=== PATIENT | male | born 1945 | race Caucasian/White ===

== ENCOUNTER 2019-01-17 09:44 | Emergency (ER) | payer MEDICAID, MEDICARE ==
--- NOTE | 2019-01-17 10:37 | ED ---
Psychiatric Complaint - HPI Summary HPI Summary: Pt is a 73 y/o M presenting to the ED with multiple symptoms present. 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 He also notes he just came back to [place] last night after living in [place] for an extended period of time. He thinks he is depressed, and when he last lived in [place] he was in the [employer] and was diagnosed with paranoid schizophrenia. He also notes hes worried about how he might get a refund for the [facility] [employer] hes staying at, as his sister paid for it and he thinks he might be admitted. He states he sometimes feels dizzy, and reports hx of DM and heart murmur. Pt denies any fever, chills, erythema of eyes, sore throat, CP, SOB, cough, abdominal pain, N/V, dysuria, hematuria, myalgia, edema , or rash. - History Of Current Complaint Chief Complaint: EDMentalHealth Time Seen by Provider: 01/17/19 10:01 Hx Obtained From: Patient Onset/Duration: Gradual Onset, Still Present Timing: Days Severity Initially: Moderate Severity Currently: Moderate Character: Anxious Aggravating Factor(s): Nothing Alleviating Factor(s): Nothing Associated Signs And Symptoms: Positive: Negative Related History: Positive For: Prior Psychiatric Issues Has Suicidal: Denies: Thoughts - Allergies/Home Medications Allergies/Adverse Reactions: Allergies Allergy/AdvReac Type Severity Reaction Status Date / Time cortisone Allergy Swelling Verified 01/17/19 10:10 Home Medications: Home Medications Atorvastatin* [Lipitor*] 20 mg PO DAILY 01/17/19 [History Confirmed 01/17/19] Carvedilol [Coreg] 25 mg PO BID 01/17/19 [History Confirmed 01/17/19] Lisinopril 20 mg PO DAILY 01/17/19 [History Confirmed 01/17/19] Metformin HCl 1,000 mg PO BID 01/17/19 [History Confirmed 01/17/19] PMH/Surg Hx/FS Hx/Imm Hx Previously Healthy: Yes Endocrine/Hematology History: Reports: Hx Diabetes Cardiovascular History: Reports: Other Cardiovascular Problems/Disorders - heart murmur, prior valve replacement Psychiatric History: Reports: Hx Schizophrenia Infectious Disease History: No Infectious Disease History: Denies: Traveled Outside the US in Last 30 Days - Family History Known Family History: Negative: Cardiac Disease - Social History Alcohol Use: None Hx Substance Use: No Substance Use Type: Reports: None Hx Tobacco Use: No Smoking Status (MU): Never Smoked Tobacco Review of Systems Negative: Fever, Chills Negative: Erythema Negative: Sore Throat Negative: Chest Pain Negative: Shortness Of Breath, Cough Negative: Abdominal Pain, Vomiting, Nausea Negative: dysuria, hematuria Negative: Myalgia, Edema Negative: Rash Neurological: Other - dizziness Positive: Other - positive: paranoid. negative: current SI All Other Systems Reviewed And Are Negative: Yes Physical Exam - Summary Physical Exam Summary: Constitutional: Well-developed, Well-nourished, Alert. (-) Distressed Skin: Warm, Dry HENT: Normocephalic; Atraumatic Eyes: Conjunctiva normal Neck: Musculoskeletal ROM normal neck. (-) JVD, (-) Stridor, (-) Tracheal deviation Cardio: Rhythm regular, rate normal, Heart sounds normal; Intact distal pulses; The pedal pulses are 2+ and symmetric. Radial pulses are 2+ and symmetric. (-) Murmur Pulmonary/Chest wall: Effort normal. (-) Respiratory distress, (-) Wheezes, (-) Rales Abd: Soft, (-) tenderness, (-) Distension, (-) Guarding, (-) Rebound Musculoskeletal: (-) Edema Lymph: (-) Cervical adenopathy Neuro: Alert, Oriented x3 Psych: pt has pressured, rapid speech. He is disorganized and paranoid Triage Information Reviewed: Yes Vital Signs On Initial Exam: Initial Vitals Temp Pulse Resp BP Pulse Ox 97.5 F 71 16 128/76 98 01/17/19 09:47 01/17/19 09:47 01/17/19 09:47 01/17/19 09:47 01/17/19 09:47 Vital Signs Reviewed: Yes Diagnostics - Vital Signs Vital Signs Temp Pulse Resp BP Pulse Ox 01/17/19 09:47 97.5 F 71 16 128/76 98 - Laboratory Result Diagrams: 01/17/19 10:37 01/17/19 10:37 Lab Statement: Any lab studies that have been ordered have been reviewed, and results considered in the medical decision making process. Course/Dx - Course Course Of Treatment: Pt is a 73 y/o M presenting to the ED with multiple symptoms present. 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 Pt denies any fever, chills, erythema of eyes, sore throat, CP, SOB, cough, abdominal pain, N/V, dysuria, hematuria, myalgia, edema, or rash. On exam, the pt has rapid, pressured speech. He is disorganized and paranoid. Pts lab results show RBC of 3.93, Hgb of 13.1, Hct of 38, MCV of 96, MCH of 33, plt count of 130, and Globulin of 4.1. Pt will be d/c'ed with dx of adjustment to stress as per Dr. White. He is stable and agreeable with this plan. - Differential Dx/Clinical Impression Provider Diagnosis: Stress and adjustment reaction Discharge ED - Sign-Out/Discharge Documenting (check all that apply): Patient Departure Patient Received Moderate/Deep Sedation with Procedure: No - Discharge Plan Condition: Stable Disposition: HOME [facility]errals: [facility] [Outside] - Attestation Statements Document Initiated by Scribe: Yes Documenting Scribe: Rocio Hinds Provider For Whom Moisés is Documenting (Include Credential): Demarcus Leone MD. Scribe Attestation: Rocio Pace, scribed for Demarcus Leone MD. on 01/17/19 at 1530. Status of Scribe Document: Ready
[2019-01-17 10:51] LABS: ABS Lymphocytes 1.3 10^3/ul (1.0-4.8); ABS Monocytes 0.7 10^3/ul (0-0.8); Eosinophil % 0.4 %; Hematocrit 38 % (42-52); Hemoglobin 13.1 g/dL (14.0-18.0); Lymphocyte % 25.7 %; Mean Corpuscular HGB Conc 35 g/dL (31-36); Mean Corpuscular Hemoglobin 33 pg (27-31); Mean Corpuscular Volume 96 fL (80-94); Mean Platelet Volume 9.6 fL (7.4-10.4); Platelet Count 130 10^3/uL (150-450); Red Blood Count 3.93 10^6 /uL (4.18-5.48); Red Cell Distribution Width 13 % (10-15); White Blood Count 4.9 10^3/uL (3.5-10.8)
[2019-01-17 11:12] LABS: Albumin 4.1 g/dL (3.2-5.2); Anion Gap 7 mmol/L (2-11); CO2 Carbon Dioxide 24 mmol/L (22-32); Calcium 9.6 mg/dL (8.6-10.3); Chloride 106 mmol/L (101-111); Potassium 4.3 mmol/L (3.5-5.0); Sodium 137 mmol/L (135-145)
[2019-01-17 11:18] LABS: ALT 23 U/L (7-52); AST 29 U/L (13-39); Alkaline Phosphatase 52 U/L (34-104); Blood Urea Nitrogen 16 mg/dL (6-24); Globulin 4.1 g/dL (2-4); Glucose 113 mg/dL (70-100); Total Protein 8.2 g/dL (6.4-8.9)
[2019-01-17 12:06] LABS: Acetaminophen < 15 mcg/mL; Alcohol < 10 mg/dL (<10); Salicylate < 2.50 mg/dL (<30)
[2019-01-17 12:19] LABS: TSH (Thyroid Stimulating Horm) 1.91 mcIU/mL (0.34-5.60)
[2019-01-17 15:56] VITALS: BP 128/73
== END 2019-01-17 16:18 | disposition home or self-care (01) ==
LOC: ED 09:44
DX: F43.20 Adjustment disorder, unspecified (principal); E11.9 Type 2 diabetes mellitus without complications; F20.9 Schizophrenia, unspecified; Z79.84 Long term (current) use of oral hypoglycemic drugs; Z79.899 Other long term (current) drug therapy; Z88.8 Allergy status to other drugs, medicaments and biological substances
CPT/HCPCS: 36415; 80053; 80320; 80329; 84443; 85025; 99284; G0480

== ENCOUNTER 2019-01-18 13:27 | Emergency (ER) | payer MEDICARE ==
--- NOTE | 2019-01-18 13:55 | ED ---
Psychiatric Complaint - HPI Summary HPI Summary: This patient is a 73 year old M presenting to [facility] with a chief complaint of SI since 1000. Patient states that he moved here from [facility] and has been staying at [facility]. Patient states that he thinks he only has a day left to live there and fears he will become homeless. Patient has recently been seen in [facility] for his diabetes and clames that he is running out of his medication. The patient rates the pain 0/10 in severity. Symptoms aggravated by possible homelessness. Symptoms alleviated by nothing. Patient reports SI. Patient denies HI. Patient has PMHx of DM. Patient denies substance abuse, EtOH use and tobacco use. Allergies Allergy/AdvReac Type Severity Reaction Status Date / Time cortisone Allergy Swelling Verified 01/17/19 10:10 Home Medications Medication Instructions Recorded Confirmed Type Atorvastatin* [Lipitor 20 MG*] 20 mg PO DAILY 14 Days #14 tab 01/18/19 Rx Carvedilol [Coreg] 25 mg PO BID 14 Days #28 tablet 01/18/19 Rx Lisinopril 20 mg PO DAILY 14 Days #14 tablet 01/18/19 Rx Metformin HCl 1,000 mg PO BID 14 Days #28 tablet 01/18/19 Rx - History Of Current Complaint Chief Complaint: EDPsychosocial Time Seen by Provider: 01/18/19 13:43 Hx Obtained From: Patient Onset/Duration: Gradual Onset Timing: Constant Character: Fearful Aggravating Factor(s): Other - possible homelessness Alleviating Factor(s): Nothing Has Suicidal: Reports: Thoughts. Denies: With A Plan, Has Prior Attempt(s) Has Homicidal: Denies: Thoughts, With A Plan, Demonstrates Gesture, Has Prior Attempt(s) - Allergies/Home Medications Allergies/Adverse Reactions: Allergies Allergy/AdvReac Type Severity Reaction Status Date / Time cortisone Allergy Swelling Verified 01/17/19 10:10 PMH/Surg Hx/FS Hx/Imm Hx Endocrine/Hematology History: Reports: Hx Diabetes Cardiovascular History: Reports: Other Cardiovascular Problems/Disorders - heart murmur, prior valve replacement Psychiatric History: Reports: Hx Schizophrenia Denies: Hx Eating Disorder Infectious Disease History: No Infectious Disease History: Denies: Traveled Outside the US in Last 30 Days - Family History Known Family History: Negative: Cardiac Disease - Social History Alcohol Use: None Hx Substance Use: No Substance Use Type: Reports: None Hx Tobacco Use: No Smoking Status (MU): Never Smoked Tobacco Review of Systems Negative: Fever Positive: Anxious All Other Systems Reviewed And Are Negative: Yes Physical Exam - Summary Physical Exam Summary: Constitutional: Well-developed, Well-nourished, Alert. (-) Distressed Skin: Warm, Dry HENT: Normocephalic; Atraumatic Eyes: Conjunctiva normal Neck: Musculoskeletal ROM normal neck. (-) JVD, (-) Stridor, (-) Tracheal deviation Cardio: Rhythm regular, rate normal, Heart sounds normal; Intact distal pulses; The pedal pulses are 2+ and symmetric. Radial pulses are 2+ and symmetric. (-) Murmur Pulmonary/Chest wall: Effort normal. (-) Respiratory distress, (-) Wheezes, (-) Rales Abd: Soft, (-) tenderness, (-) Distension, (-) Guarding, (-) Rebound Musculoskeletal: (-) Edema Lymph: (-) Cervical adenopathy Neuro: Alert, Oriented x3 Psych: Mood and affect Normal Triage Information Reviewed: Yes Vital Signs On Initial Exam: Initial Vitals Temp Pulse Resp BP Pulse Ox 97.8 F 70 17 114/76 99 01/18/19 13:34 01/18/19 13:34 01/18/19 13:34 01/18/19 13:34 01/18/19 13:34 Vital Signs Reviewed: Yes Diagnostics - Vital Signs Vital Signs Temp Pulse Resp BP Pulse Ox 01/18/19 13:34 97.8 F 70 17 114/76 99 - Laboratory Lab Statement: Any lab studies that have been ordered have been reviewed, and results considered in the medical decision making process. Re-Evaluation - Re-Evaluation First Eval Re-Evaluation Time: 14:35 Change: Improved Comment: [facility] Psychiatric tube turner saw patient and states that he should have his medications refilled and contact [facility]. Course/Dx - Course Course Of Treatment: Patient is here for his medications. Patient was seen here yesterday and given resources by the mental health team. Patient followed up on some of those resources and has an appointment with [facility] tomorrow. Patient had no red flag symptoms of mental health. He was seen by our psychiatry team again and given resources. Patient had 2 weeks of his medications prescribed by myself until he can see a PCP. - Differential Dx/Clinical Impression Provider Diagnosis: Medication refill, Agitation - Physician Notifications Discussed Care Of Patient With: Joselito White - psychiatrist Time Discussed With Above Provider: 14:45 Instructed by Provider To: Other - Dr. White recommends patient be discharged with his perscriptions refilled and to follow up with [facility] and [facility]. Discharge ED - Sign-Out/Discharge Documenting (check all that apply): Patient Departure - discharged Patient Received Moderate/Deep Sedation with Procedure: No - Discharge Plan Condition: Stable Disposition: HOME Prescriptions: Atorvastatin* [Lipitor 20 MG*] 20 mg PO DAILY 14 Days #14 tab Carvedilol [Coreg] 25 mg PO BID 14 Days #28 tablet Lisinopril 20 mg PO DAILY 14 Days #14 tablet Metformin HCl 1,000 mg PO BID 14 Days #28 tablet Patient Education Materials: Stress (ED), Medicine Refill (ED) Referrals: [facility] [Outside] - 3 Days Additional Instructions: PLEASE RETURN TO EMERGENCY DEPARTMENT FOR ANY NEW OR WORSENING SYMPTOMS ESPECIALLY ANY THOUGHTS OF SUICIDE OR THOUGHTS OF HURTING ANYONE. FOLLOW UP WITH [facility] IN 1-3 DAYS. - Billing Disposition and Condition Condition: STABLE Disposition: Home - Attestation Statements Document Initiated by Moisés: Yes Documenting Trevibe: Erika Amaro Provider For Whom Moisés is Documenting (Include Credential): Dr. Livan Aguero MD Scribe Attestation: Erika Pace scribed for Dr. Livan Aguero MD on 01/18/19 at 2000. Scribe Documentation Reviewed: Yes Provider Attestation: The documentation as recorded by the Erika quiroz accurately reflects the service I personally performed and the decisions made by me, Dr. Livan Aguero MD Status of Scribe Document: Viewed
[2019-01-18 14:48] VITALS: BP 120/69
== END 2019-01-18 14:57 | disposition home or self-care (01) ==
LOC: ED 13:27
DX: R45.1 Restlessness and agitation (principal); Z79.899 Other long term (current) drug therapy; E11.9 Type 2 diabetes mellitus without complications; Z95.2 Presence of prosthetic heart valve; F20.9 Schizophrenia, unspecified; Z79.84 Long term (current) use of oral hypoglycemic drugs; Z88.8 Allergy status to other drugs, medicaments and biological substances
CPT/HCPCS: 99282

== ENCOUNTER 2019-01-19 17:24 | Inpatient (IN) | payer MEDICARE ==
--- NOTE | 2019-01-19 18:04 | ED ---
Psychiatric Complaint - HPI Summary HPI Summary: This patient is a 73 year old M presenting to ED with a chief complaint of SI since 01/16/19. Patient has been seen here three times in the past three days for MHE. He reports a plan to jump off the bridge at [place]. Patient reports he needs medication that he didnt have in [place]. He would like to be admitted to the psych [facility]. The patient rates the pain 0/10 in severity. Symptoms aggravated by nothing. Symptoms alleviated by nothing. Patient denies fever. - History Of Current Complaint Chief Complaint: EDMentalHealth Time Seen by Provider: 01/19/19 17:52 Hx Obtained From: Patient Onset/Duration: Lasting Days - Since 01/16/19, Still Present Timing: Constant Severity Initially: Moderate Severity Currently: Moderate Character: Depressed Aggravating Factor(s): Nothing Alleviating Factor(s): Nothing Associated Signs And Symptoms: Positive: Negative - Fever Related History: Positive For: Prior Psychiatric Issues Has Suicidal: Reports: Thoughts, With A Plan Has Homicidal: Denies: Thoughts, With A Plan - Allergies/Home Medications Allergies/Adverse Reactions: Allergies Allergy/AdvReac Type Severity Reaction Status Date / Time cortisone Allergy Swelling Verified 01/17/19 10:10 PMH/Surg Hx/FS Hx/Imm Hx Endocrine/Hematology History: Reports: Hx Diabetes Cardiovascular History: Reports: Other Cardiovascular Problems/Disorders - heart murmur, prior valve replacement Psychiatric History: Reports: Hx Schizophrenia Denies: Hx Eating Disorder - Surgical History Surgery Procedure, Year, and Place: Open heart surgery. Aortic valve replacement. Right hip replacement Infectious Disease History: No Infectious Disease History: Denies: Traveled Outside the in Last 30 Days - Family History Known Family History: Negative: Cardiac Disease - Social History Alcohol Use: None Hx Substance Use: No Substance Use Type: Reports: None Hx Tobacco Use: No Smoking Status (MU): Never Smoked Tobacco Review of Systems Negative: Fever Psychological: Other - SI Positive: Depressed All Other Systems Reviewed And Are Negative: Yes Physical Exam - Summary Physical Exam Summary: VITAL SIGNS: Reviewed. GENERAL: Patient is a well-developed and nourished M who is lying comfortable in the stretcher. Patient is not in any acute respiratory distress. HEAD AND FACE: No signs of trauma. No ecchymosis, hematomas or skull depressions. No sinus tenderness. EYES: PERRLA, EOMI x 2, No injected conjunctiva, no nystagmus. EARS: Hearing grossly intact. Ear canals and tympanic membranes are within normal limits. MOUTH: Oropharynx within normal limits. NECK: Supple, trachea is midline, no adenopathy, no JVD, no carotid bruit, no c- spine tenderness, neck with full ROM. CHEST: Symmetric, no tenderness at palpation. LUNGS: Clear to auscultation bilaterally. No wheezing or crackles. CVS: Regular rate and rhythm, S1 and S2 present, no murmurs or gallops appreciated. ABDOMEN: Soft, non-tender. No signs of distention. No rebound, no guarding, and no masses palpated. Bowel sounds are normal. EXTREMITIES: FROM in all major joints, no edema, no cyanosis or clubbing. NEURO: Alert and oriented x 3. No acute neurological deficits. Speech is normal and follows commands. SKIN: Dry and warm. PSYCH: Depressed, quiet, and admits to suicidal thoughts and plan. No homicidal thoughts or plan. No signs of psychosis or pressure speech. No tangential speech. Triage Information Reviewed: Yes Vital Signs On Initial Exam: Initial Vitals Temp Pulse Resp BP Pulse Ox 98.4 F 72 14 130/77 98 01/19/19 17:33 01/19/19 17:33 01/19/19 17:33 01/19/19 17:33 01/19/19 17:33 Vital Signs Reviewed: Yes Diagnostics - Vital Signs Vital Signs Temp Pulse Resp BP Pulse Ox 01/19/19 17:33 98.4 F 72 14 130/77 98 - Laboratory Result Diagrams: 01/19/19 18:32 01/19/19 18:31 Lab Statement: Any lab studies that have been ordered have been reviewed, and results considered in the medical decision making process. Course/Dx - Course Course Of Treatment: Blood work w/o a significant abnormality. He is medically cleared. He is awaiting a MHE. Patient is hemodynamically stable and A+O x 3. Patient was signed out to Dr. Marsh at shift change at 1900 on 01/19/19 pending MHE. - Differential Dx/Clinical Impression Provider Diagnosis: Psychosis Discharge ED - Sign-Out/Discharge Documenting (check all that apply): Sign-Out Patient Signing out patient TO: Lucie Marsh - Discharge Plan Condition: Stable Disposition: PSYCHIATRIC FACILITY-OTHER - Billing Disposition and Condition Condition: STABLE Disposition: Psychiatric Facility Other - Attestation Statements Document Initiated by Scribe: Yes Documenting Scribe: Nilson Pulido Provider For Whom Moisés is Documenting (Include Credential): Jeromy Seymour MD Scribe Attestation: I, Nilson Pulido, scribed for Jeromy Seymour MD on 01/20/19 at 1853. Scribe Documentation Reviewed: Yes Provider Attestation: The documentation as recorded by the scribeNilson accurately reflects the service I personally performed and the decisions made by me, Jeromy Seymour MD Status of Scribe Document: Viewed
[2019-01-19 18:44] LABS: ABS Lymphocytes 2.2 10^3/ul (1.0-4.8); ABS Monocytes 0.6 10^3/ul (0-0.8); ABS Neutrophils 3.6 10^3/ul (1.5-7.7); Eosinophil % 0.4 %; Hematocrit 37 % (42-52); Hemoglobin 12.9 g/dL (14.0-18.0); Mean Corpuscular HGB Conc 35 g/dL (31-36); Mean Corpuscular Hemoglobin 33 pg (27-31); Mean Corpuscular Volume 96 fL (80-94); Mean Platelet Volume 9.6 fL (7.4-10.4); Nucleated Red Blood Cells % 0.1; Platelet Count 131 10^3/uL (150-450); Red Blood Count 3.87 10^6 /uL (4.18-5.48); Red Cell Distribution Width 13 % (10-15); White Blood Count 6.4 10^3/uL (3.5-10.8)
[2019-01-19 18:56] LABS: Urine Appearance Clear; Urine Bacteria Absent (Absent); Urine Bilirubin Negative (Negative); Urine Blood Negative (Negative); Urine Color Amber; Urine Glucose Negative (Negative); Urine Ketones Trace (Negative); Urine Nitrite Negative (Negative); Urine Protein 1+(30 mg/dL) (Negative); Urine Red Blood Cell Absent (Absent); Urine Urobilinogen Negative (Negative); Urine White Blood Cell Absent (Absent)
[2019-01-19 19:07] LABS: ALT 24 U/L (7-52); AST 26 U/L (13-39); Albumin 4.2 g/dL (3.2-5.2); Alkaline Phosphatase 54 U/L (34-104); Anion Gap 8 mmol/L (2-11); BUN/Creatinine Ratio 23.5 (8-20); Blood Urea Nitrogen 19 mg/dL (6-24); CO2 Carbon Dioxide 24 mmol/L (22-32); Calcium 9.7 mg/dL (8.6-10.3); Chloride 106 mmol/L (101-111); EGFR African American 113.3 (>60); EGFR Non-African American 93.7 (>60); Globulin 4.2 g/dL (2-4); Glucose 103 mg/dL (70-100); Sodium 138 mmol/L (135-145); Total Protein 8.4 g/dL (6.4-8.9)
--- NOTE | 2019-01-19 19:11 | ED ---
Progress - Progress Note Progress Note: Pt is a sign-out from Dr. Seymour to Dr. Marsh on 01/19/19 at 19:00 shift change. Pt transferred to the annex 19:. [facility] reactor technician Linneus reports that pts case was reviewed by Dr. Loza. Pt will be admitted with diagnosis of psychosis, other unspecified. Course/Dx - Course Course Of Treatment: Pt is a sign-out from Dr. Seymour to Dr. Marsh on 01/19/19 at 19:00 shift change. Pt transferred to the annex 19: [id number] reactor technician Curly reports that pts case was reviewed by Dr. Loza. Pt will be admitted with diagnosis of psychosis, other unspecified. - Diagnoses Provider Diagnoses: Psychosis - Provider Notifications Discussed Care Of Patient With: Jermaine Loza Time Discussed With Above Provider: 04:35 Instructed by Provider To: Other - [address] [place] [address] reactor technician Curly reports that pts case was reviewed by Dr. Loza. Pt will be admitted to [facility] with diagnosis of psychosis, other unspecified. Discharge ED - Sign-Out/Discharge Documenting (check all that apply): Patient Departure - Admit, Receiving Sign- Out Receiving patient FROM: Jeromy Seymour Patient Received Moderate/Deep Sedation with Procedure: No - Discharge Plan Condition: Stable Disposition: PSYCHIATRIC FACILITY-OTHER - Billing Disposition and Condition Condition: STABLE Disposition: Psychiatric Facility Other - Attestation Statements Document Initiated by Trevibe: Yes Documenting Scribe: Guy Fernández Provider For Whom Trevibabhinav is Documenting (Include Credential): Lucie Marsh MD. Scribe Attestation: Guy Pace scribed for Lucie Marsh MD. on 01/20/19 at 0632. Scribe Documentation Reviewed: Yes Provider Attestation: The documentation as recorded by the Guy quiroz accurately reflects the service I personally performed and the decisions made by me, Lucie Marsh MD. Status of Scribe Document: Viewed
[2019-01-19 19:31] LABS: Acetaminophen < 15 mcg/mL; Alcohol < 10 mg/dL (<10); Salicylate < 2.50 mg/dL (<30)
[2019-01-19 19:32] LABS: Urine Benzodiazepine Screen None Detected (None Detect); Urine Opiates Screen None Detected (None Detect)
[2019-01-19 19:45] LABS: TSH (Thyroid Stimulating Horm) 2.83 mcIU/mL (0.34-5.60)
[2019-01-19] MEDS ORDERED: metFORMIN* 500 MG TAB PO ONE (23:21)
[2019-01-19] MEDS ORDERED: Carvedilol TAB* 25 MG PO ONE (23:21)
[2019-01-20] MEDS: metFORMIN* 1,000 MG TAB PO SCH ×2 (09:46→21:15)
[2019-01-20] MEDS: Lisinopril TAB* 10 MG PO SCH (09:46)
[2019-01-20] MEDS: Atorvastatin* 20 MG TAB PO SCH (09:46)
[2019-01-20] MEDS: Carvedilol TAB* 25 MG PO SCH ×2 (09:46→21:15)
[2019-01-20] MEDS: Aspirin EC TAB* 81 MG TAB.EC PO SCH (16:22)
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
[2019-01-21] MEDS ORDERED: Acetaminophen TAB* 325 MG PO PRN (06:47)
[2019-01-21] MEDS ORDERED: Al Hydrox/Mg Hydrox/Simet LIQ* 30 ML UDC PO PRN (06:47)
[2019-01-21] MEDS: Carvedilol TAB* 25 MG PO SCH ×2 (09:04→20:12)
[2019-01-21] MEDS: Aspirin EC TAB* 81 MG TAB.EC PO SCH (09:04)
[2019-01-21] MEDS: Lisinopril TAB* 10 MG PO SCH (09:04)
[2019-01-21] MEDS: Atorvastatin* 20 MG TAB PO SCH (09:05)
[2019-01-21] MEDS: metFORMIN* 1,000 MG TAB PO SCH ×2 (09:05→20:11)
[2019-01-21] MEDS: Multivitamins/Minerals TAB PO SCH (09:05)
--- NOTE | 2019-01-21 13:52 | PN ---
Subjective - Subjective Date of Service: 01/21/19 Service Type: 62489 Hosp care 25 min moderate complexity Subjective: Patient reports desire for antidepressant. He quickly resorts to complaining about the current president and how this affects his own mood. He states that he has taken Armando's wort in the past. He consents to trial aripiprazole due to both antidepressant and antipsychotic effect. Patient signed SHAE, financial underwriter left message at office of Relief Operator, Dr Anastasiya Chen, at for collaboration. Objective - General Observations Appearance: Well Groomed Stature: Thin Posture: WNL Eye Contact: Average Behavior/Activity: Peculiar - Interaction Observations Attitude Towards Examiner: Cooperative Stated Mood: Anxious Affect: Restricted Speech Pattern/Tone: Clear, Appropriate, Normal Volume Thought Process: Tangential, Over Inclusive Perception: WNL Thought Content: Paranoid, Grandiose Thought Process: Lethality: Paranoid Ideation Hallucination Type: Denies Delusion Type: Persecution, Grandeur - Cognitive Function Orientation: A&O x 4 Level of Consciousness: Alert Cognition: Impaired Attention/Concentration Insight: Difficulty Acknowledging Presence of Psyciatric Problems Judgment Within Normal Limits: No Ability to Make Reasonable Decisions: Serverely Impaired - Medication Compliance Cooperative with Inpatient Medication Regimen: Yes - Group Participation Participates in Group Activities: Yes Assessment - Assessment Merits Inpatient Hospitalization: For Immediate Safety, For Stabilization Inpatient DSM-V Dx: F20.0 Clinical Impression: "CARMEN" is a 73yo wm, heterosexual, never without children, with history of schizophrenia, who is a resident of [place], [place] and lived in [place] in the who left his apartment abruptly and traveled across country to return to [place]. He is driving a car that is fully decorated with political statements and bizarre objects. He reports a near suicide attempt on [facility] but fortunately, drove himself to the hospital before jumping. He merits hospitalization for immediate safety and stabilization. Plan - Plan Treatment Plan: Name: NEW PERALES Birthdate: 1945 [id number] continue acute intensive psychiatric treatment. may decrease to q30min and allow staff pass per RN discretion. start aripiprazole 10mg daily and vit D. continue other medications, as ordered. obtain collateral information from sister and providers in [place]. Continued Medication Management: Start Medication Medications: Current Medications Acetaminophen (Tylenol Tab*) 650 mg PO Q4H PRN PRN Reason: PAIN; OR TEMP >101 Al Hydrox/Mg Hydrox/Simethicone (Maalox Plus*) 30 ml PO Q4H PRN PRN Reason: INDIGESTION Aripiprazole (Abilify Tab*) 10 mg PO DAILY [facility] Aspirin (Aspirin Ec Tab*) 81 mg PO DAILY [facility] Last Admin: 01/21/19 09:04 Dose: 81 mg Atorvastatin Calcium (Lipitor*) 20 mg PO DAILY [facility] Last Admin: 01/21/19 09:05 Dose: 20 mg Carvedilol (Coreg Tab*) 25 mg PO BID [facility] Last Admin: 01/21/19 09:04 Dose: 25 mg Cholecalciferol (Vitamin D Tab*) 2,000 units PO DAILY [facility] Lisinopril (Prinivil Tab*) 20 mg PO DAILY [facility] Last Admin: 01/21/19 09:04 Dose: 20 mg Metformin HCl (Glucophage*) 1,000 mg PO BID [facility] Last Admin: 01/21/19 09:05 Dose: 1,000 mg Multivitamins/Minerals (Theragran/Minerals Tab*) 1 tab PO DAILY [facility] Last Admin: 01/21/19 09:05 Dose: 1 tab - Discharge Plan Discharge Plan: Inpatient Hospitalization
[2019-01-21] MEDS: ARIPiprazole TAB* 5 MG PO SCH (14:38)
[2019-01-21] MEDS: Cholecalciferol TAB* 1000 UNITS PO SCH (14:38)
[2019-01-22 08:11] LABS: HDL Cholesterol 33.7 mg/dL
[2019-01-22] MEDS: Atorvastatin* 20 MG TAB PO SCH (09:08)
[2019-01-22] MEDS: metFORMIN* 1,000 MG TAB PO SCH ×2 (09:09→21:27)
[2019-01-22] MEDS: Lisinopril TAB* 10 MG PO SCH (09:09)
[2019-01-22] MEDS: Carvedilol TAB* 25 MG PO SCH ×2 (09:10→21:27)
[2019-01-22] MEDS: Aspirin EC TAB* 81 MG TAB.EC PO SCH (09:10)
[2019-01-22] MEDS: Cholecalciferol TAB* 1000 UNITS PO SCH (09:11)
[2019-01-22] MEDS: ARIPiprazole TAB* 5 MG PO SCH (09:11)
[2019-01-22] MEDS: Multivitamins/Minerals TAB PO SCH (09:11)
[2019-01-23] MEDS: Lisinopril TAB* 10 MG PO SCH (09:10)
[2019-01-23] MEDS: metFORMIN* 1,000 MG TAB PO SCH ×2 (09:10→20:01)
[2019-01-23] MEDS: Atorvastatin* 20 MG TAB PO SCH (09:10)
[2019-01-23] MEDS: Aspirin EC TAB* 81 MG TAB.EC PO SCH (09:10)
[2019-01-23] MEDS: Cholecalciferol TAB* 1000 UNITS PO SCH (09:10)
[2019-01-23] MEDS: Carvedilol TAB* 25 MG PO SCH ×3 (09:10→20:01)
[2019-01-23] MEDS: ARIPiprazole TAB* 5 MG PO SCH ×2 (09:10→09:21)
[2019-01-23] MEDS: Multivitamins/Minerals TAB PO SCH (09:13)
--- NOTE | 2019-01-23 16:11 | PN ---
Subjective - Subjective Date of Service: 01/23/19 Service Type: 43397 Hosp care 25 min moderate complexity Subjective: Mr. Perales continues to verbalize his dislike and opposition to Mr. Salinas but denies any thoughts of harming him or others. Also denies hallucinations or paranoia or SI. He reports of feeling weird with Abilify and wants to know if he can be on Prozac. He thinks he did well on Prozac in the past. Objective - General Observations Appearance: Well Groomed Appears Stated Age: Yes Stature: WNL Posture: WNL Eye Contact: Average Behavior/Activity: Slowed - Interaction Observations Attitude Towards Examiner: Cooperative Stated Mood: Dysphoric Affect: Blunted Speech Pattern/Tone: Clear, Appropriate, Normal Volume Thought Process: Coherent, Goal Directed Perception: WNL Thought Content: Preoccupation/Ruminations Hallucination Type: Denies Delusion Type: Denies - Cognitive Function Orientation: A&O x 4 Level of Consciousness: Awake, Alert, Appropriate Cognition: WNL Estimated Intelligence: Normal Insight: WNL Judgment Within Normal Limits: Yes Ability to Make Reasonable Decisions: Mildly Impaired - Medication Compliance Cooperative with Inpatient Medication Regimen: Yes - Group Participation Participates in Group Activities: Yes Assessment - Assessment Merits Inpatient Hospitalization: For Immediate Safety, For Stabilization, Pending Safe DC Plan Inpatient DSM-V Dx: F20.0 Clinical Impression: "CARMEN" is a 73yo wm, heterosexual, never without children, with history of schizophrenia, who is a resident of [place] and lived in [place] in the who left his apartment abruptly and traveled across country to return to [place]. He is driving a car that is fully decorated with political statements and bizarre objects. He reports a near suicide attempt on [facility] but fortunately, drove himself to the hospital before jumping. He merits hospitalization for immediate safety and stabilization. Plan - Plan Treatment Plan: Name: NEW PERALES Birthdate: 1945 [id number] continue acute intensive psychiatric treatment. may decrease to q30min and allow staff pass per RN discretion. start aripiprazole 10mg daily and vit D. continue other medications, as ordered. obtain collateral information from sister and providers in [place]. Continued Medication Management: Continue Outpt Medication Medications: Current Medications Acetaminophen (Tylenol Tab*) 650 mg PO Q4H PRN PRN Reason: PAIN; OR TEMP >101 Al Hydrox/Mg Hydrox/Simethicone (Maalox Plus*) 30 ml PO Q4H PRN PRN Reason: INDIGESTION Aripiprazole (Abilify Tab*) 10 mg PO DAILY [facility] Last Admin: 01/23/19 09:21 Dose: Not Given Aspirin (Aspirin Ec Tab*) 81 mg PO DAILY [facility] Last Admin: 01/23/19 09:10 Dose: 81 mg Atorvastatin Calcium (Lipitor*) 20 mg PO DAILY [facility] Last Admin: 01/23/19 09:10 Dose: 20 mg Carvedilol (Coreg Tab*) 25 mg PO BID [facility] Last Admin: 01/23/19 11:41 Dose: Not Given Cholecalciferol (Vitamin D Tab*) 2,000 units PO DAILY [facility] Last Admin: 01/23/19 09:10 Dose: 2,000 units Lisinopril (Prinivil Tab*) 20 mg PO DAILY [facility] Last Admin: 01/23/19 09:10 Dose: 20 mg Metformin HCl (Glucophage*) 1,000 mg PO BID [facility] Last Admin: 01/23/19 09:10 Dose: 1,000 mg Multivitamins/Minerals (Theragran/Minerals Tab*) 1 tab PO DAILY [facility] Last Admin: 01/23/19 09:13 Dose: Not Given - Discharge Plan Discharge Plan: Outpatient Follow Up Outpatient Program: [facility]
[2019-01-24] MEDS: Atorvastatin* 20 MG TAB PO SCH (09:10)
[2019-01-24] MEDS: ARIPiprazole TAB* 5 MG PO SCH (09:10)
[2019-01-24] MEDS: metFORMIN* 1,000 MG TAB PO SCH ×2 (09:11→21:04)
[2019-01-24] MEDS: Cholecalciferol TAB* 1000 UNITS PO SCH (09:11)
[2019-01-24] MEDS: Carvedilol TAB* 25 MG PO SCH ×2 (09:11→21:04)
[2019-01-24] MEDS: FLUoxetine CAP* 10 MG PO SCH (09:11)
[2019-01-24] MEDS: Aspirin EC TAB* 81 MG TAB.EC PO SCH (09:12)
[2019-01-24] MEDS: Lisinopril TAB* 10 MG PO SCH (09:12)
[2019-01-24] MEDS: Multivitamins/Minerals TAB PO SCH (09:13)
--- NOTE | 2019-01-24 15:39 | PN ---
Subjective - Subjective Date of Service: 01/24/19 Service Type: 65075 Hosp care 25 min moderate complexity Subjective: Patient is guarded in regards to efforts to collaborate with his sister, Alexa Langley without his presence. He asks to call her together. He gives phone numbers for her: cell, and home, . He is quick to stop me when I ask about mental health treatment history and redirects conversation to asking for her to send belongings and assist him, financially, with housing in [place]. During individual meeting with patient, he reports taking abilify "didn't feel right" and avoids specific symptoms. He does mention drowsiness. He states he "likes" taking fluoxetine. He speaks of political beliefs and disdain for current administration. He denies SI/HI/. Per staff, he is often pleasant but hyperverbal and tangential. Objective - General Observations Appearance: Disheveled Appears Stated Age: Yes Stature: Thin Posture: WNL Eye Contact: Average Behavior/Activity: WNL - Interaction Observations Attitude Towards Examiner: Mistrustful Stated Mood: Euthymic Affect: Full Speech Pattern/Tone: Clear, Appropriate, Normal Volume Thought Process: Circumstantial Perception: WNL Thought Content: Preoccupation/Ruminations, Paranoid, Grandiose Thought Process: Lethality: Paranoid Ideation Hallucination Type: Denies Delusion Type: Persecution, Grandeur - Cognitive Function Orientation: A&O x 4 Level of Consciousness: Alert Cognition: WNL Estimated Intelligence: Normal Insight: Difficulty Acknowledging Presence of Psyciatric Problems Judgment Within Normal Limits: No Ability to Make Reasonable Decisions: Moderately Impaired - Medication Compliance Cooperative with Inpatient Medication Regimen: Partial - Group Participation Participates in Group Activities: Partial Assessment - Assessment Merits Inpatient Hospitalization: For Immediate Safety, For Stabilization Inpatient DSM-V Dx: F20.0 Clinical Impression: "CARMEN" is a 73yo wm, heterosexual, never without children, with history of schizophrenia, who is a resident of [place] and lived in [place] in the who left his apartment abruptly and traveled across country to return to [place]. He is driving a car that is fully decorated with political statements and bizarre objects. He is refusing antipsychotic medication and denies SI/HI/. Plan - Plan Treatment Plan: Name: NEW PERALES Birthdate: 1945 [id number] continue acute intensive psychiatric treatment. may decrease to q30min and allow staff pass per RN discretion. continue to offer medications, as ordered. obtain collateral information from sister. Medications: Current Medications Acetaminophen (Tylenol Tab*) 650 mg PO Q4H PRN PRN Reason: PAIN; OR TEMP >101 Al Hydrox/Mg Hydrox/Simethicone (Maalox Plus*) 30 ml PO Q4H PRN PRN Reason: INDIGESTION Aripiprazole (Abilify Tab*) 10 mg PO DAILY [facility] Last Admin: 01/24/19 09:10 Dose: Not Given Aspirin (Aspirin Ec Tab*) 81 mg PO DAILY [facility] Last Admin: 01/24/19 09:12 Dose: 81 mg Atorvastatin Calcium (Lipitor*) 20 mg PO DAILY [facility] Last Admin: 01/24/19 09:10 Dose: 20 mg Carvedilol (Coreg Tab*) 25 mg PO BID [facility] Last Admin: 01/24/19 09:11 Dose: 25 mg Cholecalciferol (Vitamin D Tab*) 2,000 units PO DAILY [facility] Last Admin: 01/24/19 09:11 Dose: 2,000 units Fluoxetine HCl (Prozac Cap*) 10 mg PO DAILY [facility] Last Admin: 01/24/19 09:11 Dose: 10 mg Lisinopril (Prinivil Tab*) 20 mg PO DAILY [facility] Last Admin: 01/24/19 09:12 Dose: 20 mg Metformin HCl (Glucophage*) 1,000 mg PO BID [facility] Last Admin: 01/24/19 09:11 Dose: 1,000 mg Multivitamins/Minerals (Theragran/Minerals Tab*) 1 tab PO DAILY [facility] Last Admin: 01/24/19 09:13 Dose: Not Given - Discharge Plan Discharge Plan: Inpatient Hospitalization
[2019-01-25] MEDS: Aspirin EC TAB* 81 MG TAB.EC PO SCH (08:44)
[2019-01-25] MEDS: Lisinopril TAB* 10 MG PO SCH (08:44)
[2019-01-25] MEDS: Atorvastatin* 20 MG TAB PO SCH (08:45)
[2019-01-25] MEDS: metFORMIN* 1,000 MG TAB PO SCH ×2 (08:45→20:43)
[2019-01-25] MEDS: FLUoxetine CAP* 10 MG PO SCH (08:45)
[2019-01-25] MEDS: Cholecalciferol TAB* 1000 UNITS PO SCH (08:45)
[2019-01-25] MEDS: Multivitamins/Minerals TAB PO SCH (08:45)
[2019-01-25] MEDS: Carvedilol TAB* 25 MG PO SCH ×2 (08:45→20:43)
[2019-01-25] MEDS: ARIPiprazole TAB* 5 MG PO SCH (08:46)
--- NOTE | 2019-01-25 14:07 | PN ---
Subjective - Subjective Date of Service: 01/25/19 Service Type: 41487 Hosp care 15 min low complexity Subjective: Patient refuses to meet with me due to presence of SW. General Cleaner attempts to reassure CARMEN that SW is part of team. CARMEN is increasingly agitated and defensive. General Cleaner speaks with him sans SW. He is notified that hospital does not set up housing and that [facility]. He accuses staff writer of "threatening" him with homelessness. He asks for a change in providers. Patient reports "just discharge me. I don't have a gun. I'm not going to hurt anyone." Objective - General Observations Appearance: Disheveled Appears Stated Age: Yes Stature: Thin Posture: WNL Eye Contact: Intermittent Behavior/Activity: Agitated - irritable - Interaction Observations Attitude Towards Examiner: Defensive, Mistrustful, Dismissive Stated Mood: Irritable Affect: Blunted Speech Pattern/Tone: Excessive, Pressured, Loud Volume Thought Process: Loose Associations, Circumstantial Perception: WNL Thought Content: Paranoid, Grandiose Thought Process: Lethality: Paranoid Ideation Hallucination Type: Denies Delusion Type: Persecution - Cognitive Function Orientation: A&O x 4 Level of Consciousness: Alert Cognition: WNL Estimated Intelligence: Normal Insight: Difficulty Acknowledging Presence of Psyciatric Problems Judgment Within Normal Limits: No Ability to Make Reasonable Decisions: Moderately Impaired - Medication Compliance Cooperative with Inpatient Medication Regimen: Partial - Group Participation Participates in Group Activities: Partial Assessment - Assessment Merits Inpatient Hospitalization: For Immediate Safety, For Stabilization, For Discharge Planning Inpatient DSM-V Dx: F20.0 Clinical Impression: "CARMEN" is a 73yo wm, heterosexual, never without children, with history of schizophrenia, who is a resident of [place], [place] and lived in [place] in the who left his apartment abruptly and traveled across country to return to [place]. He is driving a car that is fully decorated with political statements and bizarre objects. He is refusing antipsychotic medication and denies SI/HI/. Plan - Plan Treatment Plan: Name: NEW PERALES Birthdate: 1945 [id number] continue acute intensive psychiatric treatment. may decrease to q30min and allow staff pass per RN discretion. continue to offer medications, as ordered. obtain collateral information from sister. Discharge tentative 01/26/19, to include outpatient referrals. Continued Medication Management: Consider Medication Medications: Current Medications Acetaminophen (Tylenol Tab*) 650 mg PO Q4H PRN PRN Reason: PAIN; OR TEMP >101 Al Hydrox/Mg Hydrox/Simethicone (Maalox Plus*) 30 ml PO Q4H PRN PRN Reason: INDIGESTION Aripiprazole (Abilify Tab*) 10 mg PO BEDTIME [facility] Aspirin (Aspirin Ec Tab*) 81 mg PO DAILY [facility] Last Admin: 01/25/19 08:44 Dose: 81 mg Atorvastatin Calcium (Lipitor*) 20 mg PO DAILY [facility] Last Admin: 01/25/19 08:45 Dose: 20 mg Carvedilol (Coreg Tab*) 25 mg PO BID [facility] Last Admin: 01/25/19 08:45 Dose: 25 mg Cholecalciferol (Vitamin D Tab*) 2,000 units PO DAILY [facility] Last Admin: 01/25/19 08:45 Dose: 2,000 units Fluoxetine HCl (Prozac Cap*) 10 mg PO DAILY [facility] Last Admin: 01/25/19 08:45 Dose: 10 mg Lisinopril (Prinivil Tab*) 20 mg PO DAILY [facility] Last Admin: 01/25/19 08:44 Dose: 20 mg Metformin HCl (Glucophage*) 1,000 mg PO BID [facility] Last Admin: 01/25/19 08:45 Dose: 1,000 mg Multivitamins/Minerals (Theragran/Minerals Tab*) 1 tab PO DAILY [facility] Last Admin: 01/25/19 08:45 Dose: Not Given - Discharge Plan [facility]
[2019-01-25] MEDS ORDERED: ARIPiprazole TAB* 5 MG PO SCH (21:00)
[2019-01-26] MEDS: Cholecalciferol TAB* 1000 UNITS PO SCH (08:54)
[2019-01-26] MEDS: Lisinopril TAB* 10 MG PO SCH (08:54)
[2019-01-26] MEDS: Aspirin EC TAB* 81 MG TAB.EC PO SCH (08:54)
[2019-01-26] MEDS: FLUoxetine CAP* 10 MG PO SCH (08:55)
[2019-01-26] MEDS: metFORMIN* 1,000 MG TAB PO SCH (08:55)
[2019-01-26] MEDS: Atorvastatin* 20 MG TAB PO SCH (08:55)
[2019-01-26] MEDS: Carvedilol TAB* 25 MG PO SCH (08:55)
[2019-01-26] MEDS: Multivitamins/Minerals TAB PO SCH (08:56)
[2019-01-26 10:46] VITALS: BP 136/67
--- NOTE | 2019-01-26 10:46 | DCNOTE ---
Subjective - Subjective Service Types: [id number] Hosp DC Day Mgmt simple under 30 min Discharge Date: 01/26/19 Subjective: Patient states he is planning to drive back to [place] but does not divulge details about plans. He states "that's between me and my sister." He continues to deny SI or passive wish. He reports "I don't consider you my prescriber anymore because you added the abilify after Dr Perez cancelled it." School Lunch Manager clarified that the timing of abilify was simply changed to bedtime and that it is recommended but he has the right to refuse. Patient notified of discharge plan to include appointments locally, should he stay in the area, and f/u with PCP, Dr Chen. Objective - General Observations Appearance: Well Groomed Stature: Thin Posture: WNL Eye Contact: Average Behavior/Activity: WNL - Interaction Observations Attitude Towards Examiner: Mistrustful Stated Mood: Euthymic Affect: Restricted Speech Pattern/Tone: Clear, Appropriate, Normal Volume Thought Process: Circumstantial, Over Inclusive Perception: WNL Thought Content: Paranoid Thought Process: Lethality: Paranoid Ideation Delusion Type: Persecution - Cognitive Function Orientation: A&O x 4 Level of Consciousness: Alert Cognition: WNL Estimated Intelligence: Normal Insight: Difficulty Acknowledging Presence of Psyciatric Problems Judgment Within Normal Limits: Yes - Medication Compliance Cooperative with Inpatient Medication Regimen: Partial - Group Participation Participates in Group Activities: No DC Assessment - Assessment Clinical Impression: "CARMEN" is a 73yo wm, heterosexual, never without children, with history of schizophrenia, who is a resident of [place], [place] and lived in [place] in the who left his apartment abruptly and traveled across country to return to [place]. He is driving a car that is fully decorated with political statements and bizarre objects. He is refusing antipsychotic medication and denies SI/HI/. Merits Inpatient Hospitalization: No Clear for Discharge: Acceptable Safety Profile, Low Utility of Inpt Care Inpatient DSM-V Dx: F20.0 Discharge Planning - Discharge Planning Discharge Plan: Outpatient Follow Up Outpatient Program: [facility] Recommendations for Continuing Care: Medication Management, Primary Care Followup Medications: Current Medications Aripiprazole (Abilify Tab*) 10 mg PO BEDTIME [facility] Last Admin: 01/25/19 20:43 Dose: 10 mg Aspirin (Aspirin Ec Tab*) 81 mg PO DAILY [facility] Last Admin: 01/26/19 08:54 Dose: 81 mg Atorvastatin Calcium (Lipitor*) 20 mg PO DAILY [facility] Last Admin: 01/26/19 08:55 Dose: 20 mg Carvedilol (Coreg Tab*) 25 mg PO BID [facility] Last Admin: 01/26/19 08:55 Dose: 25 mg Cholecalciferol (Vitamin D Tab*) 2,000 units PO DAILY [facility] Last Admin: 01/26/19 08:54 Dose: 2,000 units Fluoxetine HCl (Prozac Cap*) 10 mg PO DAILY [facility] Last Admin: 01/26/19 08:55 Dose: 10 mg Lisinopril (Prinivil Tab*) 20 mg PO DAILY [facility] Last Admin: 01/26/19 08:54 Dose: 20 mg Metformin HCl (Glucophage*) 1,000 mg PO BID [facility] Last Admin: 01/26/19 08:55 Dose: 1,000 mg Multivitamins/Minerals (Theragran/Minerals Tab*) 1 tab PO DAILY [facility] Last Admin: 01/26/19 08:56 Dose: Not Given Discharge Planning: Prescriptions provided for discharge [x] Yes [] No Follow up care details as per social work arrangements: [facility]- Dr Chen in [facility] Patient response to discharge plan: [x] eager for discharge [] agreeable with discharge plan [] ambivalent about discharge [] disagrees with discharge today
--- NOTE | 2019-01-26 19:55 | DS ---
CC: [facility]; Dr. Anastasiya Chen, [place], [place] * DISCHARGE SUMMARY: DATE OF ADMISSION: 01/20/19 DATE OF DISCHARGE: 01/26/19 SUPERVISING PSYCHIATRIST: Dr. Joselito White.* (DICTATED BY LITO HEAD NP) DISCHARGE DIAGNOSIS: Schizophrenia. CONDITION AT THE TIME OF DISCHARGE: Improved. The patient has denied suicidal ideation and passive wish throughout the course of admission. He reports he is planning to drive back to [place], but does not divulge details about the plans. He states, "That is between me and my sister." He continues to deny SI or passive wish. He reports, "I don't consider you my prescriber anymore because you added the Abilify after Dr. Perez canceled it." The teletypewriter operator clarifies that the timing of Abilify was simply changed to bedtime and it is recommended that he has the right to refuse it. The patient was notified of discharge plan to include appointments locally should he stay in the area and followup with his primary care provider in [place], [place]. The patient is discharged to home. MENTAL STATUS EXAM: The patient is a 73-year-old white male, tall, thin-framed who appears healthy for his age. He is adequately groomed. He has completed ADLs and is casually dressed in his own clothing. He is cooperative. The patient is alert and oriented x4. Eye contact is good. Speech is soft, articulate, and spontaneous. Concentration is good. Memory 3/3. Mood is euthymic with restricted affect. No abnormal psychomotor activity noted. Thought process is circumstantial, goal directed. Thought content is negative for suicidal ideation or passive wish. He continues to have persecutory delusions. He denies HI or . He denies auditory or visual hallucinations. Insight and judgment are fair. He appears to have average intellect and his fund of knowledge is adequate. INSTRUCTIONS GIVEN TO THE PATIENT: A. Medications: 1. Aripiprazole 10 mg p.o. at bedtime, which the patient will likely not continue. 2. Aspirin EC 81 mg p.o. daily. 3. Atorvastatin 20 mg p.o. daily. 4. Carvedilol 25 mg p.o. b.i.d. 5. Vitamin D tablet 2000 units p.o. daily. 6. Fluoxetine 10 mg p.o. daily. 7. Lisinopril 20 mg p.o. daily. 8. Metformin 1000 mg p.o. b.i.d. 9. Multivitamin 1 tab p.o. daily. B. Diet: Regular. C. Activity: Ambulation as tolerated. Tobacco cessation is not applicable. There are no pending labs or diagnostic studies. D. Followup care: The patient is welcome to follow up at [facility] and has an appointment tomorrow. He is also given a followup appointment with his primary care provider in [place] at the end of this month; that is with Dr. Anastasiya Chen. E. Substance use followup is not applicable. HOSPITAL COURSE: Part A. Reason for Admission: The patient presented to the emergency department multiple times within a few days. The most recent time he reported going to a bridge near [place] and contemplating jumping in a suicide attempt. Chief Complaint: "I've got blue hair because of the blue wave and the [place]." History of Present Illness: The patient who prefers to go by is a 73-year- old white male, domiciled, mentally disabled, never , without children, who presented to the emergency department after a seemingly impulsive trip from [place], [place]. During the conversation, the patient is pleasant and cooperative. He is tangential and overinclusive; therefore, it is hard to obtain history. However, we do know that he lived here in [place] previously, was a client of [facility], and lived in the [facility]. 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 He reports he left [place] because he was tired of the beach life and the neighbors in the [place] he lives are all Trump supporters. He states that there are lots of billionaires and movie stars in [place] that are Trump supporters. The patient has a Volvo parked at the [facility] parking lot that is covered with a bizarre arrangement of bumper stickers and Day of the objects. He reports much disdain for the current administration. He denies ill will or HI or . He has an impeccable memory and seemingly knows many people by name and has traveled all over the [facility]. 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 He does not recall the exact day he left [place], but thinks it was about 2 weeks ago. He arrived to [place] approximately on 01/17/19 and has been staying at the [employer] [place]. According to collateral obtained in the emergency room from his sister in [place], Alexa Sow, her brother had a diagnosis of schizophrenia since he was 18 years old. She had not heard from him for a few days, so she went to his home and he was gone, but the television, air conditioning, and all the appliances were on. He also left his cellphone there. He had been calling her from payphones at motels while he was driving across the country this month. The patient denies any psychiatric medications. He is able to list medications that he is taking for hypertension, diabetes, and hypercholesterolemia. He states he was seeing Dr. Chen for primary care at [facility] in [place]. He denies recent psychiatric treatment. He denies recent psychiatric medications. He presents as guarded. He endorses paranoid ideation in regards to select staff on the unit. He is not giving us consent to speak with his sister, citing that she is too busy and he avoided the question about being able to collaborate with his current medical provider. The patient states he came back to [place] because he recalled being a member of the [employer] club and living in the [facility]. He complains that [place] does not have any group therapy or structure for people with mental health issues. He reports that since arriving to [facility], he has had an appointment with Carolyn Alonso at [facility] and he met with Zaira Galvan at [facility]. The patient has been referred to [facility] for housing. He states he went to the local fpc and it looked like a violent and dangerous place. He was worried about Trump supporters attacking him. He reported fear of being vulnerable in dangerous areas. As stated above, he went near a bridge on campus and contemplated jumping, then drove himself to the hospital. Part B. Psychiatric treatment rendered: The patient was admitted to the adult behavioral services unit on voluntary status. Code status was full. He was placed on safety checks every 15 minutes. He was participating in supportive milieu, individual sessions with staff, and psychoeducational groups. He reported the desire to be on fluoxetine as he was feeling depressed about the current presidency. We discussed the use of aripiprazole for both antidepressant and antipsychotic qualities. He agreed to trial this medication. He took it once and reports that he felt "weird." He spoke with the on-call physician on the weekend and requested to start fluoxetine and he did not like the aripiprazole. He accepted fluoxetine 10 mg p.o. He reported Abilify might have caused drowsiness and I changed this to bedtime dosing. The patient continued to decline this medication. Throughout the hospitalization, he was safe on all checks. He was pleasant and in behavioral control. He was often hyperverbal, tangential, but did not show evidence of agitation or violent ideation. The patient was circumstantial about desire to find housing in [place]. We notified him that this would not be something that we could do from the hospital setting and he would need to return to [facility] for emergency housing. After that conversation, the patient spoke to his sister and told her that he was planning to return to [place]. This is an appropriate discharge plan as he is a current resident in [place]. We strongly encouraged the patient to return to [place]. He has his own car and wants to drive. He reports he is going to be in contact with his sister. tree and shrub worker spoke with his sister, who is agreeable to remain in contact with her brother while he is traveling. The patient is at chronic risk based on severe persistent illness and impaired insight into this. The hospital did not have justification to continue hospitalizations without the patient's consent due to obligation to treat in least restrictive setting and the patient's desire for discharge. Treatment team agreed upon discharge. LITO HEAD, [place]TE [id number]/[facility] #: [id number]
== END 2019-01-26 11:50 | disposition home or self-care (01) | DRG 885 ==
LOC: ED 17:24 → BSU 01-20 06:25
PROVIDERS: ADMIT Psychiatry & Neurology Psychiatry; ATTEND Psychiatry & Neurology Psychiatry
DX: F20.0 Paranoid schizophrenia (principal); R45.851 Suicidal ideations; I10 Essential (primary) hypertension; E11.9 Type 2 diabetes mellitus without complications; E78.00 Pure hypercholesterolemia, unspecified; E66.9 Obesity, unspecified; Z96.641 Presence of right artificial hip joint; Z68.26 Body mass index [BMI] 26.0-26.9, adult; Z95.3 Presence of xenogenic heart valve; Z79.82 Long term (current) use of aspirin; Z79.84 Long term (current) use of oral hypoglycemic drugs; Z88.8 Allergy status to other drugs, medicaments and biological substances; Z59.0 Homelessness
CPT/HCPCS: 36415; 80053; 80061; 80307; 80320; 80329; 81003; 81015; 83036; 84443; 85025; 99222; 99231; 99232; 99238; 99282; 99284; A9270-GY; G0480